=== PATIENT | female | born 1980 | race Caucasian/White ===

== ENCOUNTER 2016-06-21 06:30 | Inpatient (IN) | payer BC ==
[~2016-06-21] VITALS: Ht 165.1 cm; Wt 98.0 kg
--- NOTE | ~2016-06-21 | FD ---
ADMIT: 06/21/2016 RM/LOC: 228 [facility] MR#: [id number] 2620 [facility] [address] NICK SINHA [address] [place] [id number] Final Diagnosis SEX: F AGE: 35 : 1980 ADMISSION DATE: 06/21/2016 DISCHARGE DATE: 06/22/2016 FINAL DIAGNOSES: Status post spontaneous vaginal delivery at 41 and 3/7 weeks. PROCEDURE: 06/21/2016 Spontaneous vaginal delivery with delivery of viable male , 8 lb 11.5 oz, Apgars 8/9. Megan Shields MD/ senthil JOB #: [id number] CC: Megan Shields MD, Attending Physician Rae Avendano, Family Physician
--- NOTE | ~2016-06-21 | OR ---
ADMIT: 06/21/2016 RM/LOC: 228 [facility] MR#: [id number] [address] [address] NICK SINHA [place] [address] [place] [id number] Operative/Delivery Room Report SEX: F AGE: 35 : 1980 SURGERY DATE: 06/21/2016 SURGEON: Megan Shields MD PREOPERATIVE DIAGNOSES: 1. Intrauterine at 41-3/7th weeks' gestation. 2. Active labor. 3. Group B Streptococcus negative. POSTOPERATIVE DIAGNOSES: 1. Intrauterine at 41-3/7th weeks' gestation. 2. Active labor. 3. Group B Streptococcus negative. 4. Delivery of a viable male infant at 1436 hours, weighing 8 pounds 11.5 ounces with scores of 8 at 1 minute, 9 at 5 minutes. PROCEDURE: Spontaneous vaginal delivery with repair of second-degree midline laceration. ANESTHESIA: Epidural. COMPLICATIONS: None. ESTIMATED BLOOD LOSS: 200 mL. IV FLUIDS: Crystalloid. INDICATIONS: This is a 35-year-old female, 4, para 3, who presented to the [facility] with an intrauterine at 41-3/7th weeks' gestation for induction of labor. Her was complicated by advanced maternal age and history of macrosomia. She was started on Pitocin. She did request and receive an epidural for pain control. She progressed to be complete in a satisfactory fashion at which time, she was allowed to push bringing the infant's vertex to the perineum. PROCEDURE IN DETAIL: The patient was noted to be complete. She was placed in the dorsal lithotomy position and prepped and draped in usual sterile fashion. She was asked to push and delivered the 's vertex in the left occiput anterior position over the midline. Nuchal cord was checked, there was 1 noted. The was delivered through this. The anterior and posterior ADMIT: 06/21/2016 RM/LOC: 228 [facility] MR#: [id number] [address] [address] NICK SINHA [address] [place] [id number] Operative/Delivery Room Report SEX: F AGE: 35 : 1980 shoulders as well as the remainder of the were easily delivered. The cord was then reduced around the body. The infant did have spontaneous cry and movement of all 4 extremities, and he was passed to the mother's abdomen where nursing personnel were in attendance. After 1 minute, the cord was clamped x2 and cut by the father. Cord blood was obtained. A 20 units of Pitocin were infused with IV fluids to help firm the uterus. The placenta delivered intact spontaneously. The uterus was not explored. Examination of the cervix and vaginal vault did not reveal any lacerations. Examination of the perineum revealed a second-degree midline laceration. This was repaired using 3-0 Vicryl in the usual fashion. The patient tolerated the procedure well. Sponge, needle, and instrument counts were correct. The patient did recover in her Labor and Delivery suite with her . Megan Shields MD/ loc JOB #: [id number] CC: Megan Shields, Attending Physician Rae Avendano, Family Physician
[2016-06-23] MEDS ORDERED: PRENATAL VIT1 TAB PO (14:53)
[2016-06-23] MEDS ORDERED: TYLENOL #3 DPS1 TAB PO (14:54)
[2016-06-23] MEDS ORDERED: MOTRIN-DPS800 MG PO (14:54)
--- NOTE | 2016-07-13 09:09 | HP ---
ADMIT: 06/21/2016 RM/LOC: 228 [facility] MR#: [id number] [address] [address] NICK SINHA [address] [place] [id number] History and Physical SEX: F AGE: 35 : 1980 DATE OF SERVICE: CHIEF COMPLAINT: Induction of labor. HISTORY OF PRESENT ILLNESS: This is a 35-year-old female, 4, para 3-0- 0-3, who presents to the [facility]thing Center with an intrauterine at 41 and 3/7th weeks' gestation with estimated date of confinement of 06/11/2016. Her estimated date of confinement is based off her last menstrual period and consistent with a 12-week ultrasound. Her has been complicated by advanced maternal age, history of macrosomia, and a rash that she developed at approximately 19 weeks. This rash was biopsied by Dermatology and felt to be consistent with PUPPPs. She was treated with steroids at that time, and this completely resolved. LABORATORY DATA: Blood type is B positive. Antibody screen negative. Hepatitis B surface antigen negative. RPR nonreactive. Rubella immune. HIV negative. Pap was normal. Gonorrhea and chlamydia negative. Early diabetic screen 103, later diabetic screen 102. Group B strep is negative. PAST MEDICAL HISTORY: She denies hypertension, diabetes, asthma, kidney or thyroid disease. PAST SURGICAL HISTORY: Penn[place] teeth extraction. SOCIAL HISTORY: She is . She denies tobacco, alcohol, or drug use. ALLERGIES: NO KNOWN DRUG ALLERGIES. CURRENT MEDICATIONS: vitamins. PHYSICAL EXAMINATION: VITAL SIGNS: Temperature 98.1, blood pressure 123/80, pulse 115, and respirations 20. GENERAL: This is a pleasant female, in no acute distress. HEENT: Head is normocephalic, atraumatic. Pupils are equal, round, reactive to light and accommodation. Extraocular muscles are intact. NECK: Supple. HEART: Regular rate and rhythm. LUNGS: Clear bilaterally. ABDOMEN: Soft, nontender, and nondistended. Gravid. EXTREMITIES: Nontender. heart tones are 130s baseline, moderate variability is present, 15 x 15 ADMIT: 06/21/2016 RM/LOC: 228 [facility] MR#: [id number] [address] [address] EMMETT[place]ARNA NICK [place] [address] [place] [id number] History and Physical SEX: F AGE: 35 : 1980 accelerations are present, and decelerations are absent. Uterine contractions are rare. Her cervix is 3 cm, 60% effaced, -1 station. Fetus is vertex. Estimated weight 9 pounds. IMPRESSION: 1. This is a 35-year-old female, 4, para 3, with an intrauterine at 41 and 3/7th weeks' gestation. 2. Group B streptococcus negative. PLAN: At this time, we do plan to admit for induction of labor. We will start Pitocin, use assisted rupture of membranes as needed, treat her pain as she desires, and anticipate a spontaneous vaginal delivery. Megan Shields MD/ loc JOB #: [id number] CC: Megan Shields, Attending Physician Rae Avendano, Family Physician
--- NOTE | 2016-07-13 09:09 | OR ---
ADMIT: 06/21/2016 RM/LOC: 228 [facility] MR#: [id number] [address] [address] NICK SINHA [address] [place] [address] Operative/Delivery Room Report SEX: F AGE: 35 : 1980 SURGERY DATE: 06/21/2016 SURGEON: Megan Shields MD PROCEDURE: Removal of epidural catheter. DESCRIPTION OF PROCEDURE: This is a 35-year-old female, 4, now para 4, who delivered a viable male with an epidural catheter in place. Following delivery, she was placed in a sitting position. The epidural catheter was removed without any difficulty. The tip was noted to be intact. The patient tolerated the procedure well. She is now recovering in her Labor and Delivery suite with her . Megan Shields MD/ loc JOB #: [id number] CC: Megan Shields, Attending Physician Rae Avendano, Family Physician
== END 2016-06-22 18:40 | disposition home or self-care (01) | DRG 775 ==
LOC: BC 06:30 → 2LDRP 06:30
PROVIDERS: ADMIT Obstetrics & Gynecology
PROC: 3E033VJ Introduction of Other Hormone into Peripheral Vein, Percutaneous Approach (ICD-10-PCS; principal; 2016-06-21)
PROC: 0KQM0ZZ Repair Perineum Muscle, Open Approach (ICD-10-PCS; principal; 2016-06-21)
PROC: 10E0XZZ Delivery of Products of Conception, External Approach (ICD-10-PCS; principal; 2016-06-21)
DX: O48.0 Post-term pregnancy (principal); O69.81X0 Labor and delivery complicated by cord around neck, without compression, not applicable or unspecified; O70.1 Second degree perineal laceration during delivery; Z3A.41 41 weeks gestation of pregnancy; Z37.0 Single live birth